=== PATIENT | male | born 1955 | race Caucasian/White ===

== ENCOUNTER → 2022-09-15 10:04 | Outpatient (CLI) | payer MEDICARE, SELFPAY ==
--- NOTE | 2022-09-15 | DI.RAD.S_ITS ---
PROCEDURE: XR CHEST 2V INDICATIONS: Nicotine dependence, cigarettes, uncomplicated TECHNIQUE: 2 views of the chest were acquired. COMPARISON: None. FINDINGS: Surgical changes and devices: None. Lungs and pleura: Prominent pulmonary markings. No consolidation identified. Questionable pulmonary nodule at at the right lung base measuring 0.5 cm and possibly in the mid left lung measuring 0.7 cm. No pleural effusions or pneumothorax. Mediastinum: Mediastinal contours are normal. Heart size is normal. Bones and chest wall: No suspicious bony abnormalities. Soft tissues appear unremarkable. IMPRESSION: Prominent pulmonary markings. This could be due to pulmonary edema and/or emphysematous change. Possible small pulmonary nodules bilaterally. Recommend further evaluation with CT of the chest or CT lung cancer screening. Dictated by: Loc Sousa M.D. on 09/15/2022 at 10:41 Approved by: Loc Sousa M.D. on 09/15/2022 at 10:42
== END ==
PROVIDERS: PCP Family Medicine; Referring Provider Family Medicine; Visit Provider Family Medicine
DX: F17.210 Nicotine dependence, cigarettes, uncomplicated (principal)
CPT/HCPCS: 71046

== ENCOUNTER → 2023-06-08 12:46 | Outpatient (CLI) | payer MEDICARE, SELFPAY ==
--- NOTE | 2023-06-08 12:49 | DI.RAD.S_ITS ---
PROCEDURE: XR CERVICAL SPINE 2V OR 3V INDICATIONS: Pain in right shoulder TECHNIQUE: 3 view(s) of the cervical spine were acquired. COMPARISON: None. FINDINGS: Bones: No fractures or dislocations to the T1 level. The lateral masses of C1 appear intact on the odontoid view. No suspicious bony lesions. Moderate C3-C4, C4-C5, C5-C6 and C6-C7 degenerative disc disease. Mild facet hypertrophy throughout the cervical spine. Moderate bilateral C3-C4, C4-C5, C5-C6 and C6-C7 uncovertebral arthropathy. Soft tissues: No prevertebral soft tissue swelling. IMPRESSION: Multilevel degenerative disc disease. Multilevel facet and uncovertebral arthropathy. No fracture. No acute osseous lesion. If symptoms and/or clinical suspicion for pathology persists, evaluation with MRI should be considered for further assessment. Dictated by: Charissa Brower MD, PhD on 06/08/2023 at 13:37 Approved by: Charissa Brower MD, PhD on 06/08/2023 at 13:37
--- NOTE | 2023-06-08 12:49 | DI.RAD.S_ITS ---
PROCEDURE: XR SHOULDER RT MIN 2V INDICATIONS: Pain in right shoulder TECHNIQUE: 3 views of the shoulder were acquired. COMPARISON: None. FINDINGS: Bones: No fractures or dislocations. No suspicious bony lesions. Visualized ribs appear intact. 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 Soft tissues: No suspicious soft tissue calcifications. IMPRESSION: Moderate right shoulder arthrosis. Dictated by: Charissa Brower MD, PhD on 06/08/2023 at 13:36 Approved by: Charissa Brower MD, PhD on 06/08/2023 at 13:36
== END ==
PROVIDERS: PCP Family Medicine; Referring Provider Family Medicine; Visit Provider Family Medicine
DX: M47.812 Spondylosis without myelopathy or radiculopathy, cervical region (principal); M19.011 Primary osteoarthritis, right shoulder; M50.31 Other cervical disc degeneration, high cervical region; M25.511 Pain in right shoulder
CPT/HCPCS: 72040; 73030

== ENCOUNTER → 2023-07-09 09:12 | Outpatient (CLI) | payer MEDICARE, SELFPAY ==
--- NOTE | 2023-07-09 09:13 | DI.MRI.S_ITS ---
PROCEDURE: MR CERVICAL SPINE WO CON INDICATIONS: Other cervical disc degeneration, unspecified cerv TECHNIQUE: Noncontrast sagittal T1 spin echo and T2 fast spin echo, sagittal STIR, foraminal oblique sagittal T2 fast spin echo, and axial gradient echo or T2 fast spin echo through the cervical spine. COMPARISON: [facility], CR, XR CERVICAL SPINE 2V OR 3V, 06/08/2023, 12:51. FINDINGS: Image quality: Excellent. Alignment and Curvature: There is normal bony alignment. Bone Marrow: Marrow demonstrates normal overall signal. Spinal Cord: Visualized spinal cord has normal size and signal. No cerebellar tonsillar herniation. Paraspinous Soft Tissues: No paravertebral masses. Prevertebral soft tissues are normal in thickness. C2-C3: Normal appearance. C3-C4: Chronic disc Underlying congenitally short pedicles. Chronic disc height loss. Large diffuse posterior disc post osteophyte. Indentation on the cord. Severe canal stenosis. AP diameter of the central canal is 5.3 mm. There is severe bilateral lateral recess stenosis secondary to osteophyte, impinging on the bilateral C4 nerve roots in the lateral recesses. There is severe bilateral foraminal narrowing with bilateral foraminal C4 nerve root impingement as well. C4-C5: Underlying congenitally short pedicles. Chronic disc height loss. Diffuse posterior disc plus osteophyte, likely involving a calcified central posterior disc protrusion significantly indenting on the cord. Severe canal stenosis. AP diameter of the central canal is 6.3 mm. Moderate bilateral lateral recess stenosis. Prominent bilateral uncovertebral joint osteophytes. Moderate to severe right foraminal narrowing and severe left foraminal narrowing with bilateral foraminal C5 nerve root impingement. C5-C6: Very large broad-based left paracentral disc protrusion with associated calcification. There is moderate to severe central canal stenosis. AP diameter of the central canal is 8.1 mm. There is impingement on the left side of the cord by large left paracentral disc osteophyte complex. There is bilateral significant lateral recess stenosis with impingement of both C6 nerve roots in the lateral recesses. There is severe right foraminal narrowing and marked left foraminal narrowing with bilateral foraminal C6 nerve root impingement. C6-C7: Chronic disc height loss. Diffuse posterior disc plus osteophyte. AP diameter of the central canal is 9.8 mm. Prominent bilateral uncovertebral joint hypertrophy. Moderate to severe bilateral foraminal narrowing with bilateral foraminal C7 nerve root impingement. C7-T1: No canal stenosis. Mild left foraminal stenosis. IMPRESSION: 1. There are underlying congenitally short pedicles. 2. Central canal stenosis is severe at C3-C4 and C4-C5. It is moderate to severe at C5-C6. There is significant bilateral lateral recess stenosis at C3-C4, C4-C5 and C5-C6. 3. Significant multilevel foraminal narrowing with multilevel foraminal nerve root impingement as described above. Foraminal nerve root impingement occurs bilaterally at all levels from C3-C4 through C6-C7. Dictated by: Karthikeyan Kenyon M.D. on 07/10/2023 at 11:30 Approved by: Karthikeyan Kenyon M.D. on 07/10/2023 at 11:42
== END ==
PROVIDERS: PCP Family Medicine; Referring Provider Family Medicine; Visit Provider Family Medicine
DX: M48.02 Spinal stenosis, cervical region (principal); M54.2 Cervicalgia
CPT/HCPCS: 72141

== ENCOUNTER → 2023-08-28 14:46 | Outpatient (CLI) | payer MEDICARE, SELFPAY ==
--- NOTE | 2023-08-28 | DI.CT.S_ITS ---
PROCEDURE: CT CERVICAL SPINE WO CON INDICATIONS: RADICULOPATHY OF CERVICAL SPINE TECHNIQUE: Noncontrast 3 mm thick sections acquired from the skull base to the T4 level. Sagittal and coronal reformats were then constructed. For radiation dose reduction, the following was used: automated exposure control, adjustment of mA and/or kV according to patient size. COMPARISON: [facility], MR, MR CERVICAL SPINE WO CON, 07/09/2023, 9:35. [facility], CR, XR CERVICAL SPINE 2V OR 3V, 06/08/2023, 12:51. FINDINGS: Image quality: Excellent. Bones: No fractures or dislocations. Visualized superior ribs are intact. Multilevel disc space narrowing and degenerative endplate changes are seen with multilevel posterior disc-osteophyte complex as well as multilevel uncovertebral joint and facet hypertrophy. There is associated multilevel spinal canal narrowing and neural foraminal narrowing, which are better demonstrated on the prior MRI from 07/09/2023 and do not appear significantly changed. Degenerative changes are noted at the temporomandibular joints bilaterally. Generalized osteopenia. Soft tissues: Prevertebral soft tissues are normal in thickness. No paravertebral hematomas. No apical pneumothoraces. Moderate to severe centrilobular and paraseptal emphysema in the included lung apices. IMPRESSION: 1. Multilevel moderate to severe degenerative changes throughout the cervical spine with associated spinal canal and neural foraminal narrowing, which are overall better visualized on the prior MRI from 07/09/2023. 2. No acute osseous fracture or subluxation. 3. Moderate to severe emphysematous changes in the lung apices. Approved by: Baldev Hancock M.D. on 08/28/2023 at 21:03
== END ==
LOC: CT 14:47
PROVIDERS: PCP Family Medicine; Referring Provider Orthopaedic Surgery Orthopaedic Surgery of the Spine; Visit Provider Orthopaedic Surgery Orthopaedic Surgery of the Spine
DX: M47.22 Other spondylosis with radiculopathy, cervical region (principal); M47.12 Other spondylosis with myelopathy, cervical region; M48.02 Spinal stenosis, cervical region
CPT/HCPCS: 72125

== ENCOUNTER → 2024-09-06 11:31 | Outpatient (CLI) | payer MEDICARE, SELFPAY ==
--- NOTE | 2024-09-06 11:33 | DI.MRI.S_ITS ---
PROCEDURE: MR CERVICAL SPINE WO CON INDICATIONS: bilateral arm weakness TECHNIQUE: Noncontrast sagittal T1 spin echo and T2 fast spin echo, sagittal STIR, foraminal oblique sagittal T2 fast spin echo, and axial gradient echo or T2 fast spin echo through the cervical spine. COMPARISON: [facility], CT, CT CERVICAL SPINE WO CON, 08/28/2023, 14:56. [facility], MR, MR CERVICAL SPINE WO CON, 07/09/2023, 9:35. FINDINGS: Image quality: Excellent. Alignment and Curvature: There has been posterior fusion C3-C6 with laminectomy. Bone Marrow: Marrow demonstrates normal overall signal. Spinal Cord: Visualized spinal cord has normal size and signal. No cerebellar tonsillar herniation. Paraspinous Soft Tissues: No paravertebral masses. Prevertebral soft tissues are normal in thickness. C2-C3: No central spinal stenosis or significant neural foraminal stenosis. C3-C4: Moderately advanced degenerative disc disease at this level with moderately severe left neural foraminal stenosis and moderate right neural foraminal stenosis. C4-C5: Moderately severe degenerative disc disease at this level without significant central spinal stenosis. C5-C6: Moderately severe degenerative disc disease is present at this level without significant central spinal stenosis. There is moderately severe bilateral neural foraminal stenosis. C6-C7: Degenerative disc disease is present at this level without evidence of significant central spinal stenosis. There is moderate bilateral neural foraminal stenosis. C7-T1: No significant central spinal stenosis or neural foraminal stenosis. IMPRESSION: No evidence of central spinal stenosis or focal disc protrusion. Multilevel advanced degenerative disc disease and facet arthropathy is present. Multilevel neural foraminal stenosis most significant at the C5-6 level. Dictated by: Beto Henao M.D. on 09/06/2024 at 13:22 Approved by: Beto Henao M.D. on 09/06/2024 at 13:39
== END ==
PROVIDERS: PCP Family Medicine; Referring Provider Psychiatry & Neurology Neurology; Visit Provider Psychiatry & Neurology Neurology
DX: M62.81 Muscle weakness (generalized) (principal); M47.812 Spondylosis without myelopathy or radiculopathy, cervical region; R94.131 Abnormal electromyogram [EMG]; M48.02 Spinal stenosis, cervical region; M50.31 Other cervical disc degeneration, high cervical region; Z98.1 Arthrodesis status
CPT/HCPCS: 72141